=== PATIENT | male | born 1980 | race Caucasian/White ===

== ENCOUNTER 2020-04-24 19:41 | Emergency (ER) | payer OTHER, SELFPAY ==
--- NOTE | 2020-04-24 19:46 | ED.SKABFB ---
HPI - Skin/Abscess/Foreign Bdy General Chief complaint: Extremity Injury, Lower Stated complaint: Stitch hanging out Time Seen by Provider: 04/24/20 19:47 Source: patient and RN notes reviewed History of Present Illness HPI narrative: Patient is a 40-year-old male who presents the urgent care with complaints of an old stitch hanging out of his ankle . Patient states that he has had surgery on his right ankle approximately 4 times and the last time was in 2016 where he believes the stitches were placed. Patient states he noticed the stitch this evening and he peeled back the skin and attempted to pull on it with tweezers. 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 Patient denies of any recent trauma or injury to the right lower extremity. Patient denies of any other acute complaints. No acute distress noted. Patient aware of the plan of care. Some parts of this dictation were generated by voice recognition software and may contain typographical and/or grammatical inaccuracies. Related Data Allergies Allergy/AdvReac Type Severity Reaction Status Date / Time No Known Allergies Allergy Verified 04/24/20 19:48 Review of Systems Review of Systems: Narrative: CONSTITUTIONAL: Denies fever, chills, or sweats. EYES: Denies visual changes, redness, or discharge. ENT: Denies rhinorrhea, congestion, sore throat, or otalgia. CARDIOVASCULAR: Denies chest pain, palpitations, or edema. RESPIRATORY: Denies cough or dyspnea. GASTROINTESTINAL: Denies abdominal pain, nausea, vomiting, or diarrhea. GENITOURINARY: Denies dysuria or hematuria. SKIN: Reports of a stitch hanging out the right ankle MUSCULOSKELETAL: Denies back pain, joint pain, or myalgia. NEUROLOGIC: Denies headache, numbness, or weakness. All other systems reviewed are negative, except as documented in HPI. PMFSH Comments At the time of my signature, I reviewed and agree with the nursing past medical, surgical, social, and family history. There is no relevant family history pertinent to the patient complaint. Exam Narrative: Exam Narrative: GENERAL: This is a well-nourished, well-developed patient, in no apparent distress. HEAD: normocephalic, atraumatic. EYES: PERRL. Sclera clear/white. Vision is grossly intact. EARS: External ears normal NOSE: External nose normal with no obvious nasal discharge, nares without redness, no rhinorrhea. THROAT: Mucous membranes moist NECK: Neck supple SKIN: Notable suture to the right lateral malleolus with mild surrounding edema and erythema. Appears to be an old surgical site with obvious scarring. Warm, intact with no suspicious lesions or rash, good texture and turgor. NEURO: awake, alert, and oriented to person, place and time. There were no obvious focal neurologic abnormalities. EXTREMITIES: No clubbing, cyanosis, or edema. Positive strong right pedal pulse with capillary refill less than 2 seconds. No obvious deformity to right lower extremity Course Vital Signs Vital signs: Vital Signs Temperature 98.5 F 04/24/20 19:51 Pulse Rate 82 04/24/20 19:51 Respiratory Rate 18 04/24/20 19:51 Blood Pressure 130/70 04/24/20 19:51 Pulse Oximetry 98 04/24/20 19:51 Temperature 98.5 F 04/24/20 19:51 Pulse Rate 82 04/24/20 19:51 Respiratory Rate 18 04/24/20 19:51 Blood Pressure 130/70 04/24/20 19:51 Pulse Oximetry 98 04/24/20 19:51 Reviewed MDM - Skin/Abscess/Foreign Bdy MDM Narrative Medical decision making narrative: Advised patient to complete oral antibiotic regimen as prescribed. Make sure to eat and drink with the medication. Stop using tweezers or attempting to take the suture out. You do not know what the suture is holding and it should not be removed unless done so by your PCP or the orthopedic. You could cause worsening infection by picking and prodding on the area. Cover the area with a bandage and use Neosporin.
[2020-04-24 19:51] VITALS: BP 130/70; PULSE 82; RESP 18; TEMP 36.9; O2SAT 98
== END 2020-04-24 19:57 | disposition home or self-care (01) ==
PROVIDERS: Emergency Provider Nurse Practitioner Family; PCP Physician Assistant
DX: S90.551A Superficial foreign body, right ankle, initial encounter (principal); X58.XXXA Exposure to other specified factors, initial encounter
CPT/HCPCS: 99213; G0463